=== PATIENT | female | born 1985 | race Hispanic/Latino ===

== ENCOUNTER 2022-09-18 20:29 | Emergency (ER) | payer SELFPAY ==
--- OUTSIDE RECORDS SUMMARY | 2022-09-18 20:33 | XMS REPORT | Continuity of Care Document ---
:1985 Author Organization [facility] t Address [address] [place] [address] Care Team Providers Name Role Phone REGLA QURESHI Primary Care Physician Unavailable REGLA QURESHI Attending Clinician Unavailable [facility] [phone] [facility], [facility] Attending Clinician Unavailable Doctor Unassigned, [place] Attending Clinician Unavailable CORINNE WARD Attending Clinician Unavailable Corinne Ward DO Attending Clinician SAADIA ZAMUDIO Attending Clinician Unavailable Saadia Rocha Attending Clinician Payers Payer Name Policy Type Policy Number Effective Date Expiration Date S awilda [employer] [id number] 2022 OMAR 0-100% 00:00:00 Problems Condition Condition Condition Status Onset Resolution Last Treating Co mments Source Name Details Category Date Date Treatment Clinician Date Encounter Encounter Disease Active Uni vers for for 08-02 ity [place] of 00 Medical contracept contracept Br anch andrea pills andrea pills Need for Need for Disease Active Unive rs influenza influenza 08-02 ity of vaccin[place] 00 [facility] Well woman Well woman Disease Active 2015-07 U nivers exam exam 1-30 ity of 00:00: [place] 00 Medical Branch Hypothyroi Hypothyroi Disease Active 2015-07 U nivers dism dism 1-30 ity of 00:00: [place] [facility] Contracept Contracept Disease Active U nivers andrea andrea 3-08 it[place] of management [place] BMI BMI Disease Active Univers 35.0-35.9, 35.0-35.9, 3-08 it y of adult adult 00:00: [place] 00 Medical Branch Elevated Elevated Disease Active 2014-07 Univ rs blood blood 2-03 ity of pressure pressure 00:00: [place] reading reading 00 Medical without without Branch diagnosis diagnosis of of hypertensi hypertensi on on Over Over Disease Active 2013-07 Overview: [facility] s weight weight 0-02 Formattin ity of 00:00: g of this [place] 00 note Medical might be Branch different from the original. 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 unspecifie unspecifie ICD10 d obesity d obesity Diagnosis type, type, Term unspecifie unspecifie Dry Roller d whether d whether Utility serious serious comorbidit comorbidit y present y present Allergies, Adverse Reactions, Alerts Allergy Allergy Status Severity Reaction(s) Onset Inactive Treating Comm ents Source Name Type Date Date Clinician NO KNOWN Drug Active Univers ALLERGIE Class ity of S [facility] Social History Social Habit Start Date Stop Date Quantity Comments Source Exposure to 2022-07-27 2022-08-06 Not sure University SARS-CoV-2 00:00:00 09:29:[address] [facility] (event) Branch Tobacco use and 2022-08-06 2022-08-06 Smokeless tobacco Un iversity of exposure 00:00:00 00:00:00 non-user [facility] Alcohol intake 2022-08-06 2022-08-06 0 /d University of 00:00:00 00:00:00 [facility] Sex Ass[birth year] At [birth year] Universit y of 00:00:00 00:00:00 [facility] Smoking Status Start Date Stop Date Source Never smoked tobacco [facility] Medications Ordered Filled Start Stop Current Ordering Indication Dosage Frequency Signature Comments Components Source Medication Medication Date Date Medication? Clinician (SIG) Name Name miguel angel Yes [id number] 1{tbl} Take 1 Univers ne 0.35 mg 2-01 tablet by ity of tablet 00:00: mouth [place] 00 daily. [facility] Yes [id number] 1{tbl} Take 1 Univers ne 0.35 mg 2-01 tablet by ity of tablet 00:00: mouth [place] 00 daily. [facility] Yes [id number] 1{tbl} Take 1 Univers ne 0.35 mg 1-31 tablet by ity of tablet 00:00: mouth [place] 00 daily. [facility] Yes [id number] 1{tbl} Take 1 Univers ne 0.35 mg 1-31 tablet by ity of tablet 00:00: mouth [place] 00 daily. [facility] Yes [id number] 1{tbl} Take 1 Univers ne 0.35 mg 1-31 tablet by ity of tablet 00:00: mouth [place] 00 daily. [facility] Yes [id number] 1{tbl} Take 1 Univers ne 0.35 mg 1-31 tablet by ity of tablet 00:00: mouth [place] 00 daily. [facility] Yes [id number] 1{tbl} Take 1 Univers ne 0.35 mg 1-31 tablet by ity of tablet 00:00: mouth [place] 00 daily. [facility] 2022- No [id number] 1{tbl} Take 1 Univers ne 0.35 mg 1-31 02-01 tablet by ity of tablet 00:00: 00:00 mouth [place] 00 :00 daily. [facility] 2022- No [id number] 1{tbl} Take 1 Univers ne 0.35 mg 1-31 02-01 tablet by ity of tablet 00:00: 00:00 mouth [place] 00 :00 daily. Medical Branch norethindro 2022- No [id number] 1{tbl} Take 1 Univers ne 0.35 mg 08-02 tablet by ity of tablet 00:00: 00:00 mouth [place] 00 :00 daily. Medical Branch Immunizations Ordered Filled Immunization Date Status Comments [facility] e Immunization Name Name Influenza Virus 2020-04-24 Completed Universit y of Vaccine Quad .5 mL 00:00:00 [facility] 6+ MO Branch Influenza Virus 2020-04-24 Completed Universit y of Vaccine Quad .5 mL 00:00:00 [facility] 6+ MO Branch Influenza Virus 2020-04-24 Completed Universit y of Vaccine Quad .5 mL 00:00:00 [facility] 6+ MO Branch Influenza Virus 2020-04-24 Completed Universit y of Vaccine Quad .5 mL 00:00:00 [facility] 6+ MO Branch Influenza Virus 2020-04-24 Completed Universit y of Vaccine Quad .5 mL 00:00:00 [facility] 6+ MO Branch Influenza Virus 2020-04-24 Completed Universit y of Vaccine Quad .5 mL 00:00:00 [facility] 6+ MO Branch Influenza Virus 2020-04-24 Completed Universit y of Vaccine Quad .5 mL 00:00:00 [facility] 6+ MO Branch Influenza Virus 2019-08-02 Completed Universit y of Vaccine Quad .5 mL 00:00:00 [facility] 6+ MO Branch Influenza Virus 2019-08-02 Completed Universit y of Vaccine Quad .5 mL 00:00:00 [facility] 6+ MO Branch Influenza Virus 2019-08-02 Completed Universit y of Vaccine Quad .5 mL 00:00:00 [facility] 6+ MO Branch Influenza Virus 2019-08-02 Completed Universit y of Vaccine Quad .5 mL 00:00:00 [facility] 6+ MO Branch Influenza Virus 2019-08-02 Completed Universit y of Vaccine Quad .5 mL 00:00:00 [facility] 6+ MO Branch Influenza Virus 2019-08-02 Completed Universit y of Vaccine Quad .5 mL 00:00:00 [facility] 6+ MO Branch Influenza Virus 2019-08-02 Completed Universit y of Vaccine Quad .5 mL 00:00:00 [facility] 6+ MO Branch TDAP 2013-12-16 Completed University of 00:00:00 [facility] TDAP 2013-12-16 Completed University of 00:00:00 [facility] TDAP 2013-12-16 Completed University of 00:00:00 [facility] TDAP 2013-12-16 Completed University of 00:00:00 [facility] TDAP 2013-12-16 Completed University of 00:00:00 [facility] TDAP 2013-12-16 Completed University of 00:00:00 [facility] TDAP 2013-12-16 Completed University of 00:00:00 [facility] Influenza Virus 2013-08-08 Completed Universit y of Vaccine (3+ yrs) 00:00:00 [facility] [place] [facility] Influ[facility] Virus 2013-08-08 Completed Universit y of Vaccine (3+ yrs) 00:00:00 [facility] Influenza Virus 2013-08-08 Completed Universit y of Vaccine (3+ yrs) 00:00:00 [facility] Influenza Virus 2013-08-08 Completed Universit y of Vaccine (3+ yrs) 00:00:00 [facility] Influenza Virus 2013-08-08 Completed Universit y of Vaccine (3+ yrs) 00:00:00 [facility] Influenza Virus 2013-08-08 Completed Universit y of Vaccine (3+ yrs) 00:00:00 [facility] Influenza Virus 2013-08-08 Completed Universit y of Vaccine (3+ yrs) 00:00:00 [facility] [place] [facility] TDAP 2011-12-30 Completed University of 00:00:00 [facility] TDAP 2011-12-30 Completed University of 00:00:00 [facility] TDAP 2011-12-30 Completed University of 00:00:00 [facility] TDAP 2011-12-30 Completed University of 00:00:00 [facility] TDAP 2011-12-30 Completed University of 00:00:00 [facility] TDAP 2011-12-30 Completed University of 00:00:00 [facility] TDAP 2011-12-30 Completed University of 00:00:00 [facility] Rubella 2011-08-06 Completed University of 00:00:00 [facility] Varicella 2011-08-06 Completed University of (varivax)(chicken 00:00:00 [facility] edical pox) Branch Rubella 2011-08-06 Completed University of 00:00:00 [facility] Varicella 2011-08-06 Completed University of (varivax)(chicken 00:00:00 [place] [facility] edical pox) Branch Rubella 2011-08-06 Completed University of 00:00:00 [facility] Varicella 2011-08-06 Completed University of (varivax)(chicken 00:00:00 [place] [facility] edical pox) Branch Rubella 2011-08-06 Completed University of 00:00:00 [facility] Varicella 2011-08-06 Completed University of (varivax)(chicken 00:00:00 [place] [facility] edical pox) Branch Rubella 2011-08-06 Completed University of 00:00:00 [facility] Varicella 2011-08-06 Completed University of (varivax)(chicken 00:00:00 [place] M edical pox) Branch Rubella 2011-08-06 Completed University of 00:00:00 [facility] Varicella 2011-08-06 Completed University of (varivax)(chicken 00:00:00 [place] M edical pox) Branch Rubella 2011-08-06 Completed University of 00:00:00 [facility] Varicella 2011-08-06 Completed University of (varivax)(chicken 00:00:00 [place] edical pox) Branch Vital Signs Vital Name Observation Time Observation Value Comments Source Systolic blood 2022-08-06 15:33:00 126 mm[Hg] Univer sity of pressure [facility] Diastolic blood 2022-08-06 15:33:00 85 mm[Hg] [facility] Heart rate 2022-08-06 15:33:00 82 /min [facility] Body temperature 2022-08-06 15:33:00 36.44 Dori [facility] Respiratory rate 2022-08-06 15:33:00 18 /min [facility] Body height 2022-08-06 15:33:00 162.6 cm [facility] Body weight 2022-08-06 15:33:00 76.93 kg [facility] BMI 2022-08-06 15:33:00 29.11 kg/m2 [facility] Systolic blood 2022-07-29 15:48:00 134 mm[Hg] Univer sity of pressure [facility] Diastolic blood 2022-07-29 15:48:00 72 mm[Hg] Unive rsity of pressure [facility] Heart rate 2022-07-29 15:48:00 71 /min Universi ty of [place] [facility] Body temperature 2022-07-29 15:48:00 36.67 Dori Univ ersity of [place] [facility] Respiratory rate 2022-07-29 15:48:00 17 /min Univ ersity of [place] [facility] Body height 2022-07-29 15:48:00 147 cm Universi ty of [facility] Body weight 2022-07-29 15:48:00 76.749 kg Universi ty of [place] [facility] BMI 2022-07-29 15:48:00 35.52 kg/m2 Universi ty of [place] [facility] Systolic blood 2021-10-13 21:05:00 138 mm[Hg] Univer sity of pressure [facility] Diastolic blood 2021-10-13 21:05:00 95 mm[Hg] Unive rsity of pressure [facility] Heart rate 2021-10-13 21:05:00 77 /min Universi ty of [place] [facility] Respiratory rate 2021-10-13 21:05:00 16 /min Univ ersity of [facility] Oxygen saturation in 2021-10-13 21:05:00 100 /min University Arterial blood by [facility] Pulse oximetry Branch Body temperature 2021-10-13 19:06:00 37 Dori Univ ersity of [place] [facility] Body weight 2021-10-13 19:06:00 71.215 kg Universi ty of [place] [facility] BMI 2021-10-13 19:06:00 32.81 kg/m2 Universi ty of [facility] Systolic blood 2021-08-05 16:24:00 145 mm[Hg] Univer sity of pressure [facility] Branch Diastolic blood 2021-08-05 16:24:00 90 mm[Hg] Unive rsity of pressure [facility] Heart rate 2021-08-05 16:24:00 74 /min Universi ty of [facility] Body temperature 2021-08-05 16:23:00 36.22 Dori Univ ersity of [facility] Respiratory rate 2021-08-05 16:23:00 16 /min [facility] Body height 2021-08-05 16:23:00 147.3 cm [facility] Body weight 2021-08-05 16:23:00 76.023 kg [facility] BMI 2021-08-05 16:23:00 35.03 kg/m2 [facility] Procedures Procedure Date / Time Performed Performing Clinician Sour e HIV 1/2 AG-AB WITH 2022-08-06 16:15:00 Regla Qureshi [facility] REFLEX [facility] SYPHILIS IGG/IGM 2022-08-06 16:15:00 Regla Qureshi [facility] ASSIGNMENT OF BENEFITS 2022-07-29 15:21:38 Doctor Unassigned, No [facility] RAPID INFLUENZA A/B 2021-10-13 19:18:00 Corinne [facility] COVID-19 (ID NOW RAPID 2021-10-13 19:18:00 Corinne Ward Un [facility] TESTING) [facility] CONSENT/REFUSAL FOR 2021-10-13 18:55:05 [facility]igned, [facility] TREAT[facility] POCT TEST 2021-08-05 16:54:00 Saadia Zamudio [facility] Encounters Start End Encounter Admission Attending Care Care Encounter Source Date/Time Date/Time Type Type Clinicians Facility Department ID 2022-08-06 2022-08-06 Outpatient R TITUS OHNEDA [facility] [id number] Univers 09:15:00 10:17:00 REGLA lombardo o f [facility] 2022-08-06 2022-08-06 Office FRANCISCO Qureshi [id number] [facility] 09:15:00 10:17:00 Visit Regla Peralta LEGAL RECEPTIONIST [id number] lewisy [facility] [id number] Miguel Angel as MATERNAL [id number] Med ical & CHILD [address] [place] [address] 2022-08-06 2022-08-06 Outpatient R OHNEDA [facility] [id number] Univers 08:45:00 08:45:00 ity [facility] 2022-07-29 2022-07-29 Nurse Visit, Ang-Rmchp Nurse [facility] [id number] Univers 09:30:00 09:45:00 Visit Regla Qureshi LEGAL RECEPTIONIST [id number]. 10 ity [facility] [id number] Miguel Angel as MATERNAL [id number] [facility] ical & CHILD [address] [place] [address] 2022-07-29 2022-07-29 [facility] [id number] Univers 09:30:00 09:30:00 REGLA umanzor [facility] 2022-07-29 2022-07-29 [facility] [id number] Univers 09:00:00 09:00:00 REGLA umanzor [facility] 2022-07-29 2022-07-29 Orders Doctor SHARDA [id number] Univers 00:00:00 00:00:00 Only Unassigned, DESTINEY [id number] ity of [place] [facility] [id number] Miguel Angel as [id number] [address] 2021-10-13 2021-10-13 Emergency [facility] [id number] Univers 14:08:00 16:14:00 CORINNE itoneyda [facility] 2021-10-13 2021-10-13 Emergency [facility] [id number] Univers 14:08:00 16:14:00 Corinne FAM [id number] ity [facility] [id number] [facility] [id number] [place] [id number] [place] 2021-10-13 2021-10-13 Orders Doctor SHARDA [id number] Univers 00:00:00 00:00:00 Only Unassigned, DESTINEY [id number] ity of [place] [facility] [id number] Miguel Angel as [id number] [address] 2021-08-05 2021-08-05 Outpatient R ROBB [facility] [id number] Univers 10:30:00 11:14:30 SAADIA lombardo o noé [facility] 2021-08-05 2021-08-05 Office Robb [facility] [id number] Univers 10:30:00 11:14:30 Visit Saadia Alcocer LEGAL RECEPTIONIST [id number] ity [facility] [id number] Miguel Angel as MATERNAL [id number] [facility] & CHILD [address] [place] [address] 2021-08-05 2021-08-05 Outpatient Leodan ZAMUDIO [facility] [id number] Univers 10:30:00 11:14:30 SAADIA umanzor [facility] 2021-08-05 2021-08-05 Outpatient Leodan ZAMUDIO [facility] [id number] Univers 10:30:00 10:30:00 SAADIA lombardo o noé [facility] 2021-08-05 2021-08-05 Outpatient Leodan ZAMUDIO [facility] [id number] Univers 10:00:00 10:00:00 SAADIA lombardo o noé [facility] 2020-08-02 2020-08-02 Outpatient R ROBB [facility] [id number] Univers 09:00:00 09:00:00 SAADIA lombardo o noé [facility] 2020-08-02 2020-08-02 Outpatient Leodan ZAMUDIO [facility] [id number] Univers 09:00:00 09:00:00 SAADIA lombardo o noé [facility] 2020-04-24 2020-04-24 Outpatient R ROBB [facility] [id number] Univers 10:30:00 10:30:00 SAADIA lombardo o [facility] 2020-04-24 2020-04-24 Outpatient R [facility] [id number] Univers 10:00:00 10:00:00 [facility] 2019-11-01 2019-11-01 Outpatient R [facility] [id number] Univers 09:00:00 09:00:00 [facility] Results Test Description Test Time Test Comments Results Result Comments Source SYPHILIS IGG/IGM 2022-08-07 17:40:54 Test Item Value Reference Range Interpretation Comme nts Syphilis IgG/IgM (test code = Non-reactive Non-reactive 12269-6) FRED (test code = FRED) Non-reactive - No serologic evidence of T. pallidum infection. Cannot exclude incubating or early syphilis. Submit a second specimen in 2-4 weeks if syphilis is clinically suspected. Equivocal - Further testing to follow. Reactive - Further testing to follow. Lab Interpretation (test code = Normal 94122-4) [id number] 17:40:54 Test Item Value Reference Range Interpretation Comments Syphilis IgG/IgM (test Non-reactive Non-reactive code = 90071-7) FRED (test code = FRED) Non-reactive - No serologic evidence of T. pallidum infection. Cannot exclude incubating or early syphilis. Submit a second specimen in 2-4 weeks if syphilis is clinically suspected. Equivocal - Further testing to follow. Reactive - Further testing to follow. Lab Interpretation (test Normal code = 38713-6) [facility] 1/2 AG-AB WITH [id number] 09:53:03 Test Item Value Reference Range Interpretation Comments HIV 0.09 Negative Semi-quantitative (test code = 32289-2) FRED (test code = Non-reactive for HIV-1 FRED) antigen and HIV-1/HIV-2 antibodies. ?No laboratory evidence of HIV infection. ?Repeat in 2-4 weeks if acute HIV infection is suspected. [facility] 1/2 AG-AB WITH [id number] 09:53:03 Test Item Value Reference Range Interpretation Comments HIV 0.09 Negative Semi-quantitative (test code = 62176-2) FRED (test code = Non-reactive for HIV-1 FRED) antigen and HIV-1/HIV-2 antibodies. ?No laboratory evidence of HIV infection. ?Repeat in 2-4 weeks if acute HIV infection is suspected. [facility], THIRD [id number] 03:07:10 Test Item Value Reference Range Interpretation Comments TSH, THIRD 1.810 UIU/ML 0.400-4.100 UNLESS OTHERWI SE GENERATION (test INDICATED, ALL TESTING code = 2821) PERFORMED [facility], [facility]. [address] [place] [id number] [employer] HDZ DIRECTOR: Cem GUERRAIA NUMBER [id number] CAP ACCREDITATION N O. [id number] POCT [id number] 16:54:00 Test Item Value Reference Range Interpretation Comments POCT PREG (test code = 1605) Negative On board controls acceptable with C Yes Line (test code = 3574) POCT PREG LOT # (test code = 3575) POCT PREG TEST DATE (test code = 3576) [facility]
[2022-09-18] MEDS ORDERED: ASPIRIN 81 MG CHEWABLE TABLET ONE (20:56)
[2022-09-18 21:05] LABS: Hematocrit 38.4 % (36.0-45.0); Lymphocytes % 27.6 % (15.3-44.8); MPV 8.6 fL (7.6-11.3); RBC Red Blood Cell Count 4.62 M/uL (3.86-4.86)
[2022-09-18 21:10] LABS: Protime INR 1.01
--- NOTE | 2022-09-18 21:11 | RAD REPORT ---
EXAM DESCRIPTION: Gayathrit Single View09/18/2022 9:04 pm CLINICAL HISTORY: Chest pain;SOB COMPARISON: Chest Pa And Lat (2 Views) dated 09/18/2017; CHEST PA AND LAT 2 VIEW dated 02/28/2014 TECHNIQUE: Portable AP view of the chest. FINDINGS: The lungs are clear. No pneumothorax or effusion. The cardiomediastinal contours are unrem arkable. IMPRESSION: No acute cardiopulmonary process.
[2022-09-18 21:27] LABS: Albumin 3.7 g/dL (3.4-5.0); Bilirubin Direct 0.1 mg/dL (0-0.2); Bilirubin Total 0.5 mg/dL (0.2-1.0); Magnesium 2.3 mg/dL (1.6-2.4); Potassium 3.5 mEq/L (3.5-5.1); Protein, Total 7.7 g/dL (6.4-8.2); Thyroid Stimulating Hormone 2.72 uIU/mL (0.358-3.740); Troponin High Sensitivity 3.2 pg/mL (<58.9)
--- NOTE | 2022-09-18 22:26 | RAD REPORT ---
EXAM DESCRIPTION: CT - Chest For Pe Angio - 09/18/2022 9:58 pm CLINICAL HISTORY: CHEST PAIN COMPARISON: Chest Single View dated 09/18/2022 TECHNIQUE: Thin axial CT images of the chest were obtained following administration of 78 mL Isovue 370 IV contrast. Multiplanar reconstructions, and maximum intensity projection reconstructions were g enerated and reviewed. Exam utilizes a protocol for optimal evaluation of pulmonary arterial tree. All CT scans are performed using dose optimization technique as appropriate and may include automated exposure control or mA/KV adjustment according to patient size. FINDINGS: Pulmonary arteries are normal. No emboli or other suspicious finding. No acute or signific ant aorta findings. No mass or infiltrate in the lung parenchyma. No pleural thickening or pleural effusion. No pneumotho rax. No abnormal mediastinal or hilar masses or lymphadenopathy seen. No chest wall mass or abnormal axill iary lymphadenopathy. Right and left liver lobe fluid density lesions, the largest in the left liver lobe, measuring 3.8 ce ntimeter, suggestive of cysts. IMPRESSION: No evidence of acute central pulmonary emboli. Negative CT scan of the chest for other significant findings.
[2022-09-18 23:55] LABS: SARS-CoV-2 Antigen Rapid Res Negative (Negative)
--- NOTE | 2022-09-19 00:01 | EDPHYS ---
Physician Documentation [facility] Name: Isa Guzmán Age: 37 yrs Sex: Female : 1985 Arrival Date: 09/18/2022 Time: 20:32 Bed 5 Private MD: ED Physician Charles Magana OUT AND OUT [employer] HAND: 09/18 20:46 LMP 09/04/2022 ll3 Historical: - Allergies: 20:46 No Known Allergies; ll3 - Home Meds: 20:46 methimazole Oral [Active]; ll3 - PMHx: 20:46 Thyroid problem; ll3 - PSHx: 20:46 None; ll3 - Immunization history:: Client reports receiving the 2nd dose of the Covid vaccine. - Social history:: Smoking status: Patient denies any tobacco usage or history of. Exam: 20:58 Constitutional: This is a well developed, well nourished patient who is awake, alert, snw and in no acute distress. Head/Face: Normocephalic, atraumatic. Eyes: Pupils equal round and reactive to light, extra-ocular motions intact. Lids and lashes normal. Conjunctiva and sclera are non-icteric and not injected. Cornea within normal limits. Periorbital areas with no swelling, redness, or edema. ENT: Nares patent. No nasal discharge, no septal abnormalities noted. Tympanic membranes are normal and external auditory canals are clear. Oropharynx with no redness, swelling, or masses, exudates, or evidence of obstruction, uvula midline. Mucous membranes moist. Neck: Trachea midline, no thyromegaly or masses palpated, and no cervical lymphadenopathy. Supple, full range of motion without nuchal rigidity, or vertebral point tenderness. No Meningismus. Chest/axilla: Normal chest wall appearance and motion. Nontender with no deformity. No lesions are appreciated. 20:58 Abdomen/GI: Soft, non-tender, with normal bowel sounds. No distension or tympany. No guarding or rebound. No evidence of tenderness throughout. Back: No spinal tenderness. No costovertebral tenderness. Full range of motion. Skin: Warm, dry with normal turgor. Normal color with no rashes, no lesions, and no evidence of cellulitis. MS/ Extremity: Pulses equal, no cyanosis. Neurovascular intact. Full, normal range of motion. Neuro: Awake and alert, GCS 15, oriented to person, place, time, and situation. Cranial nerves II-XII grossly intact. Motor strength 5/5 in all extremities. Sensory grossly intact. Cerebellar exam normal. Normal gait. Psych: Awake, alert, with orientation to person, place and time. Behavior, mood, and affect are within normal limits. 20:58 Cardiovascular: Rate: tachycardic, Rhythm: irregular, Heart sounds: normal, Edema: is not appreciated, JVD: is not appreciated. 20:58 Respiratory: the patient does not display signs of respiratory distress, Respirations: normal, Breath sounds: cough. Vital Signs: 20:43 BP 150 / 83; Pulse 109; Resp 19; Temp 99.4(O); Pulse Ox 100% on R/A; Weight 68.95 kg ll3 (R); Height 4 ft. 11 in. (R); 20:50 BP 134 / 84; Pulse 107; Resp 19 S; Pulse Ox 100% on R/A; ha1 21:17 BP 134 / 84; Pulse 96; Resp 19 S; Pulse Ox 100% on R/A; as6 22:09 BP 129 / 89; Pulse 90; Resp 17 S; Pulse Ox 100% on R/A; ha1 22:53 BP 130 / 96; Pulse 96; Resp 14 S; Pulse Ox 100% on R/A; as6 20:43 Body Mass Index 30.70 (68.95 kg, 149.86 cm) ll3 MDM: 20:40 Patient medically screened. 09/18 20:47 Order name: EKG; Complete Time: 20:48 09/18 20:47 Order name: Cardiac monitoring; Complete Time: 20:49 09/18 20:47 Order name: EKG - Nurse/Tech; Complete Time: 20:49 09/18 20:47 Order name: IV Saline Lock; Complete Time: 20:52 09/18 20:47 Order name: Labs collected and sent; Complete Time: 20:52 09/18 20:47 Order name: O2 Per Protocol; Complete Time: 20:49 09/18 20:47 Order name: O2 Sat Monitoring; Complete Time: 20:49 09/18 20:47 Order name: CBC with Diff; Complete Time: 21:23 snw 09/18 20:47 Order name: PT-INR; Complete Time: 21:23 snw 09/18 20:47 Order name: Test, Serum; Complete Time: 21:23 snw 09/18 20:47 Order name: XRAY Chest (1 view); Complete Time: 21:23 snw 09/18 20:47 Order name: Basic Metabolic Panel; Complete Time: 21:31 snw 09/18 20:47 Order name: LFT's; Complete Time: 21:31 snw 09/18 20:47 Order name: Magnesium; Complete Time: 21:31 snw 09/18 20:47 Order name: NT PRO-BNP; Complete Time: 21:31 snw 09/18 20:47 Order name: Troponin HS; Complete Time: 21:31 snw 09/18 20:47 Order name: TSH; Complete Time: 21:31 snw 09/18 20:47 Order name: CT Chest For PE Angio; Complete Time: 22:30 snw 09/18 23:02 Order name: SARS RAPID; Complete Time: 00:00 snw EC: Rate is 111 beats/min. Rhythm is irregular. QRS [place] is Normal. ID interval is normal. snw QRS interval is normal. QT interval is normal. No Q waves. Clinical impression: Sinus tachycardia. Administered Medications: 20:52 Drug: Aspirin PO Chewable Tablet 324 mg Route: PO; as6 Disposition Summary: 09/19/22 00:00 Discharge Ordered Location: Home snw Condition: Stable snw Diagnosis - Acute bronchitis, unspecified snw Followup: snw - With: Emergency Department - When: As needed - Reason: Worsening of condition Followup: snw - With: Private Physician - When: 2 - 3 days - Reason: Recheck today's complaints, Continuance of care, Re-evaluation by your physician Forms: - Medication Reconciliation Form snw - Thank You Letter snw - Antibiotic Education snw - Prescription Opioid Use snw Signatures: Dispatcher [employer] EDMS Deborah Whitehead, SOCRATES-C OPERATIONS ASSISTANT-Csnw Mario Tucker FNP-C OPERATIONS ASSISTANT-Cla1 Vitor Choi RN RN as6 Fartun Guaman RN RN ll3
--- NOTE | 2022-09-19 00:01 | ER ---
Nurse's Notes [facility] Name: Isa Guzmán Age: 37 yrs Sex: Female : 1985 Arrival Date: 09/18/2022 Time: 20:32 Bed 5 Private MD: Diagnosis: Acute bronchitis, unspecified Presentation: 09/18 20:43 Chief complaint: Patient states: C/o cough (X 2 weeks), yesterday started having left ll3 arm numbness, and since Thursday experienced intermittent chest pressure and SOB. Coronavirus screen: Vaccine status: Patient reports receiving the 2nd dose of the covid vaccine. cough unrelated to allergies, muscle pain. Ebola Screen: No symptoms or risks identified at this time. Initial Sepsis Screen: Does the patient meet any 2 criteria? HR > 90 bpm. No. Patient's initial sepsis screen is negative. Does the patient have a suspected source of infection? No. Patient's initial sepsis screen is negative. Risk Assessment: Do you want to hurt yourself or someone else? Patient reports no desire to harm self or others. Onset of symptoms was September 04, 2022. 20:43 Method Of Arrival: Ambulatory ll3 20:43 Acuity: CAIO 2 ll3 INSPECTOR HAIRSPRING: 20:46 LMP 09/04/2022 ll3 Historical: - Allergies: 20:46 No Known Allergies; ll3 - Home Meds: 20:46 methimazole Oral [Active]; ll3 - PMHx: 20:46 Thyroid problem; ll3 - PSHx: 20:46 None; ll3 - Immunization history:: Client reports receiving the 2nd dose of the Covid vaccine. - Social history:: Smoking status: Patient denies any tobacco usage or history of. Screenin:33 [facility] ED Fall Risk Assessment (Adult) History of falling in the last 3 months, ha1 including since admission No falls in past 3 months (0 pts) Confusion or Disorientation No (0 pts) Intoxicated or Sedated No (0 pts) Impaired Gait Yes (1 pt) Mobility Assist Device Used No (0 pt) Altered Elimination No (0 pt) Score/Fall Risk Level 0 - 2 = Low Risk Oriented to surroundings, Maintained a safe environment, Educated pt \T\ family on fall prevention, incl call for assistance when getting out of bed, Hourly rounding (assess needs \T\ fall precautionary measures) done. 20:50 Abuse screen: Denies threats or abuse. Denies injuries from another. ha1 20:50 Abuse screen: Denies threats or abuse. Denies injuries from another. Nutritional ha1 screening: No deficits noted. Tuberculosis screening: No symptoms or risk factors identified. Assessment: 20:33 General: Appears comfortable, Behavior is calm, cooperative. Pain: Complains of pain in ha1 chest Pain does not radiate. Pain currently is 8 out of 10 on a pain scale. Quality of pain is described as pressure, Pain began 2-3 days ago. Is intermittent, Alleviated by rest. Neuro: Level of Consciousness is awake, alert, obeys commands, Oriented to person, place, time, situation. Cardiovascular: Denies chest pain, Capillary refill < 3 seconds Patient's skin is warm and dry. Respiratory: Airway is patent Respiratory effort is even, unlabored, Respiratory pattern is regular, symmetrical. GI: No signs and/or symptoms were reported involving the gastrointestinal system. GI: : No signs and/or symptoms were reported regarding the genitourinary system. 20:33 Musculoskeletal: Circulation, motion, and sensation intact. Range of motion: intact in ha1 all extremities, Reports weakness in left arm. 21:18 Reassessment: Patient appears in no apparent distress at this time. as6 22:09 Reassessment: Patient and/or family updated on plan of care and expected duration. Pain ha1 level reassessed. Patient is alert, oriented x 3, equal unlabored respirations, skin warm/dry/pink. Patient states feeling better. Patient states symptoms have improved. Vital Signs: 20:43 BP 150 / 83; Pulse 109; Resp 19; Temp 99.4(O); Pulse Ox 100% on R/A; Weight 68.95 kg ll3 (R); Height 4 ft. 11 in. (R); 20:50 BP 134 / 84; Pulse 107; Resp 19 S; Pulse Ox 100% on R/A; ha1 21:17 BP 134 / 84; Pulse 96; Resp 19 S; Pulse Ox 100% on R/A; as6 22:09 BP 129 / 89; Pulse 90; Resp 17 S; Pulse Ox 100% on R/A; ha1 22:53 BP 130 / 96; Pulse 96; Resp 14 S; Pulse Ox 100% on R/A; as6 20:43 Body Mass Index 30.70 (68.95 kg, 149.86 cm) ll3 ED Course: 20:32 Patient arrived in ED. mr 20:33 Patient maintains SpO2 saturation greater than 95% on room air. ha1 20:36 Vitor Choi, RN is Primary Nurse. as6 20:39 Deborah Whitehead [facility]C [facility] snw 20:39 Charles Magana MD is Attending Physician. snw 20:46 Triage completed. ll3 20:46 Arm band placed on Patient placed in an exam room, on a stretcher, on pulse oximetry. ll3 EKG completed in triage. Results shown to MD. 20:50 Patient has correct armband on for positive identification. Placed in gown. Bed in low ha1 position. Call light in reach. Side rails up X 1. Client placed on continuous cardiac and pulse oximetry monitoring. NIBP monitoring applied. 20:50 Inserted saline lock: 20 gauge in right antecubital area, using aseptic technique. ha1 Blood collected. 21:06 XRAY Chest (1 view) In Process Unspecified. EDMS 21:09 Basic Metabolic Panel Sent. ha1 21:09 CBC with Diff Sent. ha1 21:09 LFT's Sent. ha1 21:09 Magnesium Sent. ha1 21:09 NT PRO-BNP Sent. ha1 21:09 PT-INR Sent. ha1 21:09 Troponin HS Sent. ha1 21:09 TSH Sent. ha1 21:09 Test, Serum Sent. ha1 22:00 CT Chest For PE Angio In Process Unspecified. EDMS 23:39 SARS RAPID Sent. kl Administered Medications: 20:52 Drug: Aspirin PO Chewable Tablet 324 mg Route: PO; as6 Outcome: 09/19 00:00 Discharge ordered by . snw Signatures: Dispatcher [employer] EDMS Olinda Delarosa RN RN kl Waters, Shelly, FNP-C FNP-Csnw Nat Ballesteros mr Vitor Choi, RN RN as6 Fartun Guaman RN RN ll3 Edwige Craig RN RN ha1
[2022-09-19 03:02] VITALS: TEMP 99.4; O2SAT 100
[2022-09-19 03:08] VITALS: BP 112/91
--- NOTE | 2022-09-22 17:45 | EKG ---
Test Date: 2022-09-18 Test Time: 20:42:57 Communications And Signals Supervisor: MEASUREMENT RESULTS: Intervals: Rate: 111 NC: 132 QRSD: 74 QT: 330 QTc: 448 [place]: P: 60 NC: 132 QRS: 54 T: 37 INTERPRETIVE STATEMENTS: Sinus tachycardia with occasional premature ventricular complexes Otherwise normal ECG No previous ECG available for comparison Electronically Signed On 09-22-22 17:37:53 CDT by Jonny Soto
== END 2022-09-19 00:22 | disposition home or self-care (01) ==
LOC: ER 20:29
DX: J20.9 Acute bronchitis, unspecified (principal); Z20.822 Contact with and (suspected) exposure to COVID-19
CPT/HCPCS: 36415; 71045; 71275; 80048; 80076; 83735; 83880; 84443; 84484; 84703; 85025; 85610; 87811; 93005; 99284; Q9967